=== PATIENT | male | born 1970 | race American Indian/Alaskan Native ===

== ENCOUNTER 2020-04-05 00:18 | Emergency (ER) | payer MEDICAID ==
[2020-04-05 01:18] LABS: Hematocrit 40.3 % (35.5-45.6); Hemoglobin 13.7 gm/dl (11.8-15.2); Mean Corpuscular HGB Conc 34 % (32-34); Mean Corpuscular Volume 95 fl (84-94); Platelet Count 270 K/mm3 (140-440); Red Blood Count 4.27 M/mm3 (3.65-5.03); Red Cell Distribution Width 15.7 % (13.2-15.2)
[2020-04-05 01:35] LABS: Blood Urea Nitrogen 11 mg/dL (9-20); Calcium 9.3 mg/dL (8.4-10.2); Hemolysis Index 5
[2020-04-05 01:39] LABS: BUN/Creatinine Ratio 16
--- NOTE | 2020-04-05 11:40 | Emergency Department Report ---
ED Seizure HPI - General Chief Complaint: Seizure Stated Complaint: POSS SZ Time Seen by Provider: 04/05/20 11:12 Source: patient Mode of arrival: Ambulatory Limitations: No Limitations - History of Present Illness Initial Comments: 50-year-old male with a past medical history of HIV and lung cancer with mets to the brain presents to the hospital with complaints of feeling like a seizure is coming on. Patient has surgical resection of left side brain tumor within the last 2 months. Patient states he experienced 2 seizures that involve the right arm shaking with subsequent generalized tonic-clonic activity prior to having his tumor removed. He was placed on Keppra 1000 mg twice daily and has been compliant. Patient states prior to arrival patient stated his right arm felt abnormal but he did not have any shaking activity. He also states he has had residual right arm weakness that has been gradually improving since having brain tumor and surgical resection. Patient has been waiting in the ED for over 10 hours reports feeling better without any seizure activity. He took his Keppra dose while in the waiting room with last dose this morning. Patient is also compliant with his HIV medication - Related Data Home Medications Medication Instructions Recorded Confirmed Last Taken levETIRAcetam [Keppra TAB] 500 mg PO BID 04/05/20 04/05/20 04/05/20 10:00 Allergies Allergy/AdvReac Type Severity Reaction Status Date / Time No Known Allergies Allergy Unverified 04/05/20 00:35 ED Review of Systems ROS: Stated complaint: POSS SZ Other details as noted in HPI Comment: All other systems reviewed and negative ED Past Medical Hx - Past Medical History Previous Medical History?: Yes Hx of Cancer: Yes (Metastatic lung cancer (to brain)) Hx Seizures: Yes Hx HIV: Yes - Surgical History Past Surgical History?: No Additional Surgical History: Resection of brain tumor - Social History Smoking Status: Current Every Day Smoker Substance Use Type: Alcohol, Cocaine, Marijuana - Medications Home Medications: Home Medications Medication Instructions Recorded Confirmed Last Taken Type levETIRAcetam [Keppra TAB] 500 mg PO BID 04/05/20 04/05/20 04/05/20 10:00 History ED Physical Exam - General Limitations: No Limitations - Other Other exam information: General: No acute distress Head: Atraumatic Eyes: normal appearance Neck: Normal appearance, no midline tenderness Chest: Clear to auscultation bilaterally CV: Regular rate and rhythm Abdomen: Soft, normal bowel sounds, nontender, nondistended, no rebound or guarding Back: Normal inspection Extremity: Normal inspection, full range of motion Neuro: Alert O x 3, no facial asymmetry, speech clear, right arm 4/5 weakness, other extremities 5/5 strength, sensation grossly intact Psych: Appropriate behavior Skin: No rash ED Course Vital Signs 04/05/20 04/05/20 04/05/20 00:29 08:34 12:05 Temperature 97.7 F 97.8 F 98.1 F Pulse Rate 101 H 77 84 Respiratory 18 18 17 Rate Blood Pressure 134/90 Blood Pressure 157/122 141/90 [Right] O2 Sat by Pulse 94 94 95 Oximetry ED Medical Decision Making - Lab Data Result diagrams: 04/05/20 00:46 04/05/20 00:46 Lab Results 04/05/20 04/05/20 Range/Units 00:46 00:46 WBC 5.7 (4.5-11.0) K/mm3 RBC 4.27 (3.65-5.03) M/mm3 Hgb 13.7 (11.8-15.2) gm/dl Hct 40.3 (35.5-45.6) % MCV 95 H (84-94) fl MCH 32 (28-32) pg MCHC 34 (32-34) % RDW 15.7 H (13.2-15.2) % Plt Count 270 (140-440) K/mm3 Sodium 144 (137-145) mmol/L Potassium 3.7 (3.6-5.0) mmol/L Chloride 105.4 (98-107) mmol/L Carbon Dioxide 24 (22-30) mmol/L Anion Gap 18 mmol/L BUN 11 (9-20) mg/dL Creatinine 0.7 L (0.8-1.3) mg/dL Estimated GFR > 60 ml/min BUN/Creatinine Ratio 16 % Glucose 78 (75-100) mg/dL Calcium 9.3 (8.4-10.2) mg/dL - Medical Decision Making Patient presents to the hospital with feeling like a seizure was going to start however, after being in the ER for 10 hours he did not have any seizure activity. He is continued to be compliant with his Keppra. Labs unremarkable. Patient has baseline right arm weakness that is unchanged. He will be discharged home to continue his current seizure medication and follow-up with his outpatient physicians Critical Care Time: No Critical care attestation.: If time is entered above; I have spent that time in minutes in the direct care of this critically ill patient, excluding procedure time. ED Disposition Clinical Impression: History of seizure, History of malignant neoplasm metastatic to brain, Metastatic primary lung cancer, HIV (human immunodeficiency virus infection) Disposition: - TO HOME OR SELFCARE Is pt being admited?: No Does the pt Need Aspirin: No Condition: Stable Instructions: Seizure, Adult Additional Instructions: Continue taking your medication as prescribed. Follow-up with your doctor or doctor/clinic provided. Return if symptoms worsen as indicated by your discharge instructions. Referrals: CESAR GALDAMEZ MD [Primary Care Provider] - 3-5 Days your, doctors [Other] - 3-5 Days Time of Disposition: 12:40
[2020-04-05 12:07] VITALS: BP 141/90
== END 2020-04-05 12:45 | disposition home or self-care (01) ==
LOC: ED 00:18
DX: R56.9 Unspecified convulsions (principal); C34.90 Malignant neoplasm of unspecified part of unspecified bronchus or lung; C79.31 Secondary malignant neoplasm of brain; F17.200 Nicotine dependence, unspecified, uncomplicated; F12.10 Cannabis abuse, uncomplicated; F14.10 Cocaine abuse, uncomplicated; Z85.841 Personal history of malignant neoplasm of brain; Z98.890 Other specified postprocedural states; Z21 Asymptomatic human immunodeficiency virus [HIV] infection status; Z79.899 Other long term (current) drug therapy
CPT/HCPCS: 36415; 80048; 85027